=== PATIENT | male | born 1980 | race Two or more races ===

== ENCOUNTER 2017-12-12 09:11 | Emergency (ER) | payer OTHER ==
[2017-12-12 09:16] VITALS: RESP 18; TEMP 98.4
--- NOTE | 2017-12-12 09:25 | ED ---
General Adult HPI - General Chief complaint: Upper Respiratory Infection Stated complaint: Cough, Nose Drainage Time Seen by Provider: 12/12/17 09:19 Source: patient, family, RN notes reviewed Mode of arrival: ambulatory Limitations: no limitations, language barrier - History of Present Illness Initial comments: Patient is a pleasant 37-year-old male presenting to the emergency Department with cough. Symptoms have been present for a few days. Patient did have symptoms similar to this that lasted a week and then resolved and returned. No difficulty breathing. No chest pain. Patient does have some rhinorrhea. No sore throat. No fevers. Patient has limited Citizen [place] capabilities however does have an older male accompanying him that does easily translate. No leg pain or leg swelling. - Related Data Previous Rx's Medication Instructions Recorded Albuterol Inhaler [Ventolin Hfa 2 puff INHALATION Q4HR PRN #1 12/12/17 Inhaler] inhaler Fexofenadine/Pseudoephedrine 1 each PO BID #30 tab 12/12/17 [Zaina-D 12 Hour Tablet] Allergies Allergy/AdvReac Type Severity Reaction Status Date / Time No Known Allergies Allergy Verified 12/12/17 09:17 Review of Systems ROS Statement: Those systems with pertinent positive or pertinent negative responses have been documented in the HPI. ROS Other: All systems not noted in ROS Statement are negative. Constitutional: Denies: fever, chills Eyes: Denies: eye pain ENT: Denies: ear pain Respiratory: Reports: as per HPI, cough Cardiovascular: Denies: chest pain Endocrine: Denies: fatigue Gastrointestinal: Denies: abdominal pain Genitourinary: Denies: dysuria Musculoskeletal: Denies: back pain Skin: Denies: rash Neurological: Denies: weakness Past Medical History Past Medical History: Hyperlipidemia, Renal Disease Additional Past Medical History / Comment(s): hepatitis c History of Any Multi-Drug Resistant Organisms: None Reported Past Surgical History: No Surgical Hx Reported Additional Past Surgical History / Comment(s): thyroid Past Psychological History: No Psychological Hx Reported Smoking Status: Never smoker Past Drug Use History: None Reported General Exam Limitations: no limitations, language barrier General appearance: alert, in no apparent distress Head exam: Present: atraumatic Eye exam: Present: normal appearance, PERRL ENT exam: Present: normal oropharynx Neck exam: Present: normal inspection. Absent: tenderness, meningismus Respiratory exam: Present: normal lung sounds bilaterally Cardiovascular Exam: Present: regular rate, normal rhythm GI/Abdominal exam: Present: soft. Absent: tenderness Extremities exam: Present: normal inspection. Absent: pedal edema, calf tenderness Neurological exam: Present: alert Psychiatric exam: Present: normal affect, normal mood Skin exam: Present: normal color Course Vital Signs 12/12/17 09:13 Temperature 98.4 F Pulse Rate 80 Respiratory 18 Rate Blood Pressure 128/88 O2 Sat by Pulse 98 Oximetry Medical Decision Making - Medical Decision Making Patient reevaluated and updated. - Radiology Data Radiology results: image reviewed (Chest x-ray shows no acute process) Disposition Clinical Impression: Bronchitis Disposition: HOME SELF-CARE Condition: Stable Instructions: Acute Bronchitis (ED) Additional Instructions: Please follow-up with primary care physician in the next couple days for recheck. Return for difficulty in breathing, pain, fevers, worsening symptoms or other concerns. Prescriptions: Albuterol Inhaler [Ventolin Hfa Inhaler] 2 puff INHALATION Q4HR PRN #1 inhaler PRN Reason: Dyspnea Fexofenadine/Pseudoephedrine [Zaina-D 12 Hour Tablet] 1 each PO BID #30 tab Is patient prescribed a controlled substance at d/c from ED?: No Referrals: Akilah Cabrera MD [STAFF PHYSICIAN] - 1-2 days Kartik Kahn MD [REFERRING] - 1-2 days Time of Disposition: 10:35
--- NOTE | 2017-12-12 09:52 | XR ---
EXAMINATION TYPE: XR chest 2V DATE OF EXAM: 12/12/2017 COMPARISON: NONE HISTORY: Chest pain TECHNIQUE: Frontal and lateral views of the chest are obtained. FINDINGS: There is no focal air space opacity. No evidence for pneumothorax. No pleural effusion. The cardiac silhouette size is within normal limits. The osseous structures are grossly intact. IMPRESSION: 1. No acute cardiopulmonary process.
[2017-12-12 10:38] VITALS: BP 124/76; PULSE 78
== END 2017-12-12 10:41 | disposition home or self-care (01) ==
LOC: EC 09:11
DX: J40 Bronchitis, not specified as acute or chronic (principal); Z86.19 Personal history of other infectious and parasitic diseases
CPT/HCPCS: 71046; 99283